=== PATIENT | female | born 1930 | race Two or more races ===

== ENCOUNTER 2017-09-13 17:19 | Inpatient (IN) | payer OTHER ==
[~2017-09-13] VITALS: Ht 167.6 cm; Wt 61.2 kg
[~2017-09-13 17:19] MED LIST: METOPROLOL ER-1 EAC1; PLAVIX75 MG
[2017-09-13] MEDS ORDERED: TOPROL XL50 M1 (17:31)
[2017-09-13] MEDS ORDERED: CLONAZEPAM0.5 M1 (17:31)
[2017-09-13] MEDS ORDERED: SYNTHROID75 MCG (17:32)
[2017-09-13] MEDS ORDERED: FAMOTIDINE40 MG (17:33)
[2017-09-13] MEDS ORDERED: ATORVASTATIN CA40 MG (17:33)
[2017-09-13] MEDS ORDERED: SERTRALINE HCL25 MG (17:34)
[2017-09-13] MEDS ORDERED: PLAVIX75 MG (17:34)
[2017-09-13] MEDS ORDERED: SEROQUEL XR50 MG (17:35)
[2017-09-13] MEDS ORDERED: PNEU16DI2 (17:35)
[2017-09-13] MEDS ORDERED: MEMANTINE HCL10 MG (17:35)
[2017-09-18] MEDS ORDERED: PERCOCET 5-3251 EACH PO (13:18)
[2017-09-18] MEDS ORDERED: CEFADROXIL500 MG PO (13:18)
[2017-09-18] MEDS ORDERED: XARELTO10 MG PO (13:18)
[2017-09-19] MEDS ORDERED: XARELTO10 MG PO (08:22)
[2017-09-19] MEDS ORDERED: CEFADROXIL500 MG PO (08:22)
[2017-09-19] MEDS ORDERED: PERCOCET 5-3251 EACH PO (08:22)
[2017-09-23] MEDS ORDERED: XARELTO10 MG PO (14:48)
[2017-09-23] MEDS ORDERED: CEFADROXIL500 MG PO (14:48)
[2017-09-23] MEDS ORDERED: PERCOCET 5-3251 EACH PO (14:48)
== END 2017-09-23 17:45 | DRG 470 ==
LOC: ER 17:19 → SURH 19:25 → SEC-K 19:25 → SURH 21:48 → MEDI 21:48 → SURH 09-17 16:04
PROVIDERS: Orthopaedic Surgery
PROC: 0MBM0ZZ Excision of Left Hip Bursa and Ligament, Open Approach (ICD-10-PCS; 2017-09-16)
PROC: 0SRS0JZ Replacement of Left Hip Joint, Femoral Surface with Synthetic Substitute, Open Approach (ICD-10-PCS; principal; 2017-09-16 14:00)
PROC: 4A12X4Z Monitoring of Cardiac Electrical Activity, External Approach (ICD-10-PCS; 2017-09-17)
DX: S72.092A Other fracture of head and neck of left femur, initial encounter for closed fracture (principal); D62 Acute posthemorrhagic anemia; I97.89 Other postprocedural complications and disorders of the circulatory system, not elsewhere classified; N39.0 Urinary tract infection, site not specified; W18.39XA Other fall on same level, initial encounter; Y93.89 Activity, other specified; Y92.89 Other specified places as the place of occurrence of the external cause; Y99.8 Other external cause status; I10 Essential (primary) hypertension; I25.10 Atherosclerotic heart disease of native coronary artery without angina pectoris; I48.0 Paroxysmal atrial fibrillation; E78.4 Other hyperlipidemia; E03.8 Other specified hypothyroidism; G30.8 Other Alzheimer's disease; F02.80 Dementia in other diseases classified elsewhere, unspecified severity, without behavioral disturbance, psychotic disturbance, mood disturbance, and anxiety; M81.0 Age-related osteoporosis without current pathological fracture; Z79.02 Long term (current) use of antithrombotics/antiplatelets; M70.72 Other bursitis of hip, left hip; M16.12 Unilateral primary osteoarthritis, left hip; B96.20 Unspecified Escherichia coli [E. coli] as the cause of diseases classified elsewhere; B96.1 Klebsiella pneumoniae [K. pneumoniae] as the cause of diseases classified elsewhere; E87.6 Hypokalemia

== ENCOUNTER → 2017-11-21 | Emergency (ER) | payer OTHER ==
[~2017-11-21] VITALS: Ht 167.6 cm; Wt 59.0 kg
[~2017-11-21] MED LIST changes: +ATORVASTATIN CA40 MG; +CEFADROXIL500 MG PO; +CLONAZEPAM0.5 M1; +FAMOTIDINE40 MG; +MEMANTINE HCL10 MG; +PERCOCET 5-3251 EACH PO; +PNEU16DI2; +SEROQUEL XR50 MG; +SERTRALINE HCL25 MG; +SYNTHROID75 MCG; +TOPROL XL50 M1; +XARELTO10 MG PO
== END | disposition designated cancer center or children's hospital (05) ==
LOC: ER 09:34
DX: I48.91 Unspecified atrial fibrillation (principal); S06.2X0A Diffuse traumatic brain injury without loss of consciousness, initial encounter; S00.03XA Contusion of scalp, initial encounter; S60.221A Contusion of right hand, initial encounter; W18.09XA Striking against other object with subsequent fall, initial encounter; Y93.89 Activity, other specified; Y92.128 Other place in nursing home as the place of occurrence of the external cause; Y99.8 Other external cause status